=== PATIENT | female | born 1965 | race Caucasian/White ===

== ENCOUNTER 2018-11-13 12:34 | Emergency (ER) | payer MEDICARE, OTHER ==
[2018-11-13] MEDS ORDERED: NALOXONE 0.4 MG/ML 1 ML VIAL IV STA (12:51)
[2018-11-13] MEDS ORDERED: SODIUM CHLORIDE 0.9% 1,000 ML IV ONE (12:51)
[2018-11-13 13:05] LABS: Basophils # (A) 0.1 k/uL (0-0.2); Basophils % (A) 1 %; Eosinophils # (A) 0.3 k/uL (0-0.7); Eosinophils % (A) 3 %; HCT 40.9 % (34.0-46.0); HGB 13.4 gm/dL (11.4-16.0); Lymphocytes # (A) 1.6 k/uL (1.0-4.8); Lymphocytes % (A) 20 %; MCH 30.2 pg (25.0-35.0); MCHC 32.7 g/dL (31.0-37.0); MCV 92.2 fL (80.0-100.0); Mean Platelet Volume 6.3; Monocytes # (A) 0.4 k/uL (0-1.0); Monocytes % (A) 5 %; Neutrophils # (A) 5.6 k/uL (1.3-7.7); Neutrophils % (A) 69 %; Platelet Count 287 k/uL (150-450); RBC 4.44 m/uL (3.80-5.40); RDW 14.1 % (11.5-15.5); WBC 8.1 k/uL (3.8-10.6)
[2018-11-13 13:08] LABS: Glucose,Whole Blood 95 mg/dL (75-99)
[2018-11-13 13:13] LABS: INR 0.9 (<1.2); Partial Thromboplastin Time 22.7 sec (22.0-30.0); Prothrombin Time 9.9 sec (9.0-12.0)
[2018-11-13 13:21] LABS: Ammonia 21 umol/L (<30); Lactic Acid, Venous <0.5 mmol/L (0.7-2.0)
[2018-11-13 13:23] LABS: ALT 20 U/L (9-52); AST 16 U/L (14-36); Acetaminophen <10.0 ug/mL; African American GFR (CKD) 81 (>60 ml/min/1.73 sqM); Albumin 4.6 g/dL (3.5-5.0); Alcohol <10 mg/dL; Alkaline Phosphatase 42 U/L (38-126); Anion Gap 8 mmol/L; Blood Urea Nitrogen 18 mg/dL (7-17); Calcium 9.3 mg/dL (8.4-10.2); Carbon Dioxide 28 mmol/L (22-30); Chloride 106 mmol/L (98-107); Creatine Kinase 60 U/L (30-135); Glucose 99 mg/dL (74-99); Potassium 4.2 mmol/L (3.5-5.1); Salicylate <1.0 mg/dL; Sodium 142 mmol/L (137-145); Total Bilirubin 0.3 mg/dL (0.2-1.3); Total Protein 7.3 g/dL (6.3-8.2)
--- NOTE | 2018-11-13 13:25 | CT ---
EXAMINATION TYPE: CT brain wo con DATE OF EXAM: 11/13/2018 COMPARISON: None HISTORY: Disorientation, headache, COURTNEY. Hx HTN. CT DLP: 1064.[address] of the brain was performed. The ventricles, basal cisterns and sulci overlying the cerebral convexities demonstrate mild enlargem ent. There is no evidence for intracranial hemorrhage or sulcal effacement. There is decreased attenuation about the periventricular white matter and deep white matter of both c erebral hemispheres, compatible with chronic small vessel ischemia. Differential diagnosis does inclu de demyelination. No mass effects are seen.No midline shift. Osseous calvarium is intact. If symptoms persist consider MRI. IMPRESSION: 1. Age related atrophic and chronic small vessel ischemic change without acute intracranial process s een at this time.
--- NOTE | 2018-11-13 13:29 | XR ---
EXAMINATION TYPE: XR chest 2V DATE OF EXAM: 11/13/2018 COMPARISON: None INDICATION: Acute mental status change TECHNIQUE: Frontal and lateral views of the chest are obtained. FINDINGS: The heart size is normal. The pulmonary vasculature is normal. The lungs are clear. There is hyperinflation flattening the diaphragms compatible COPD. IMPRESSION: 1. No acute pulmonary process. 2. COPD
--- NOTE | 2018-11-13 14:02 | ED ---
Altered Mental Status HPI - General Chief Complaint: Altered Mental Status Stated Complaint: altered mental status Time Seen by Provider: 11/13/18 12:45 Source: patient, family Mode of arrival: wheelchair Limitations: altered mental status - History of Present Illness Initial Comments: The patient is a 53-year-old female who presents to the emergency department accompanied by her termite treater helper boyfriend. The patient and her were going to see a movie. reports that the patient was acting normally earlier today. They did get into the car and the patient complained of a left-sided headache. She then slumped over and became unresponsive. Boyfriend reports that she's been currently under the care of the [place] doctors in [facility] for a perforated bowel. She takes Klonopin for anxiety. She reports that she did take her medications just prior to her episode. Denies possibility of taking any additional medications. The patient is denying use of any illicit substances to include heroin, cocaine or alcohol. Boyfriend reports she has a h istory of opiate abuse in the past. There is no lateralizing deficits noted. No facial droop. The patient would respond properly to questioning and follow commands when arousable. The patient appeared overly sedated with a low pulse ox saturation. There were no signs of respiratory distress. HPI was difficult to obtain due to the patient's initial altered mental status. - Related Data Home Medications Medication Instructions Recorded Confirmed Dextroamphetamine/Amphetamine 15 mg PO QAM 11/13/18 11/13/18 [Adderall] OXcarbazepine [Trileptal] 300 mg PO BID 11/13/18 11/13/18 clonazePAM [KlonoPIN] 1.5 mg PO QAM PRN 11/13/18 11/13/18 traZODone HCL 150 mg PO HS 11/13/18 11/13/18 Allergies Allergy/AdvReac Type Severity Reaction Status Date / Time hydrocodone AdvReac Nausea & Verified 11/13/18 12:52 Vomiting Review of Systems ROS Statement: Those systems with pertinent positive or pertinent negative responses have been documented in the HPI. ROS Other: All systems not noted in ROS Statement are negative. Past Medical History Past Medical History: Hypertension Additional Past Medical History / Comment(s): stomach perforation History of Any Multi-Drug Resistant Organisms: None Reported Additional Past Surgical History / Comment(s): foot surgery Past Psychological History: Anxiety Smoking Status: Current every day smoker Past Alcohol Use History: None Reported Past Drug Use History: Marijuana General Exam Limitations: altered mental status General appearance: obtunded Head exam: Present: atraumatic, normocephalic Eye exam: Present: normal appearance, other (pupils are 2 mm, non-reactive bilaterally) ENT exam: Present: normal exam, mucous membranes moist Neck exam: Present: normal inspection. Absent: tenderness, meningismus Respiratory exam: Present: normal lung sounds bilaterally, other (shallowed respirations) Cardiovascular Exam: Present: regular rate, normal rhythm GI/Abdominal exam: Present: soft. Absent: distended, tenderness, guarding, rebound, rigid Extremities exam: Present: full ROM Back exam: Present: normal inspection. Absent: tenderness Neurological exam: Present: altered, CN II-XII intact Skin exam: Present: warm, dry, intact Course Vital Signs 11/13/18 11/13/18 11/13/18 12:40 12:54 14:17 Temperature 98.0 F Pulse Rate 88 64 Respiratory 18 10 L 18 Rate Blood Pressure 128/80 130/94 O2 Sat by Pulse 93 L 95 Oximetry 11/13/18 15:45 Temperature 98.4 F Pulse Rate 84 Respiratory 18 Rate Blood Pressure 124/84 O2 Sat by Pulse 95 Oximetry Medical Decision Making - Medical Decision Making Upon arrival the patient is placed into room 1. She is hooked up to continuous pulse ox and cardiac monitoring. Vitals are obtain and the patient is notably hypoxic with sats in the 70s. She is placed on 2 L nasal cannula. NIH stroke scaling is performed and the patient does not demonstrate any lateralizing symptoms. She will open her eyes and follow commands when aroused however this is difficult. Peripheral IV is established. The patient's pupils were pinpoint at 2 mm. Because of this I did provide the patient with 0.4 mg of IV Narcan. She then becomes alert and her hypoxia improves. She states that she felt well today and does not remember the episode. She denies taking any excess of her medications. She denies any opiate abuse. Denies any illicit drug use. I did recommend laboratory studies as well as a CT of the patient's brain and a chest x-ray. Upon return I did reevaluate the patient. She does remain alert in the examination room. The patient is observed for several hours and does not demonstrate any signs of sedation. I did discuss the results with the patient. I did inform her that she tested positive for opiates, benzos, cocaine and THC in her urine. The patient continues to deny use of opiates and cocaine. The patient does have abnormal thyroid studies at this time. She will be discharged home and needs to follow-up with her primary care physician at the [facility]. She is given copies of her laboratory studies. I did offer to call the patient's primary care physician to see if it should start her on any thyroid medications however the patient reports that she will do this on her own. I did instruct her that she should stay away from use of any illicit substances. If she has any new or worsening symptoms, she should return to the emergency room. The patient was discharged home in stable condition - Differential Diagnosis acute encephalopathy, polysubstance abuse, hypothyroid - Lab Data Result diagrams: 11/13/18 12:50 11/13/18 12:50 Lab Results 11/13/18 11/13/18 11/13/18 Range/Units 12:48 12:50 12:50 WBC 8.1 (3.8-10.6) k/uL RBC 4.44 (3.80-5.40) m/uL Hgb 13.4 (11.4-16.0) gm/dL Hct 40.9 (34.0-46.0) % MCV 92.2 (80.0-100.0) fL MCH 30.2 (25.0-35.0) pg MCHC 32.7 (31.0-37.0) g/dL RDW 14.1 (11.5-15.5) % Plt Count 287 (150-450) k/uL Neutrophils % 69 % Lymphocytes % 20 % Monocytes % 5 % Eosinophils % 3 % Basophils % 1 % Neutrophils # 5.6 (1.3-7.7) k/uL Lymphocytes # 1.6 (1.0-4.8) k/uL Monocytes # 0.4 (0-1.0) k/uL Eosinophils # 0.3 (0-0.7) k/uL Basophils # 0.1 (0-0.2) k/uL PT (9.0-12.0) sec INR (<1.2) APTT (22.0-30.0) sec Sodium (137-145) mmol/L Potassium (3.5-5.1) mmol/L Chloride (98-107) mmol/L Carbon Dioxide (22-30) mmol/L Anion Gap mmol/L BUN (7-17) mg/dL Creatinine (0.52-1.04) mg/dL Est GFR (CKD-EPI)AfAm (>60 ml/min/1.73 sqM) Est GFR (CKD-EPI)NonAf (>60 ml/min/1.73 sqM) Glucose (74-99) mg/dL POC Glucose (mg/dL) 95 (75-99) mg/dL POC Glu Project Safety Manager ID [email or web address] Plasma Lactic Acid Adi <0.5 L (0.7-2.0) mmol/L Calcium (8.4-10.2) mg/dL Total Bilirubin (0.2-1.3) mg/dL AST (14-36) U/L ALT (9-52) U/L Alkaline Phosphatase (38-126) U/L Ammonia 21 (<30) umol/L Creatine Kinase (30-135) U/L Total Protein (6.3-8.2) g/dL Albumin (3.5-5.0) g/dL TSH (0.465-4.680) mIU/L Free T4 (0.78-2.19) ng/dL Urine Color Urine Appearance (Clear) Urine pH (5.0-8.0) Ur Specific [place] (1.001-1.035) Urine Protein (Negative) Urine Glucose (UA) (Negative) Urine Ketones (Negative) Urine Blood (Negative) Urine Nitrite (Negative) Urine Bilirubin (Negative) Urine Urobilinogen (<2.0) mg/dL Ur Leukocyte Esterase (Negative) Urine RBC (0-5) /hpf Urine WBC (0-5) /hpf Ur Squamous Epith Cells (0-4) /hpf Urine Bacteria (None) /hpf Urine Mucus (None) /hpf Salicylates mg/dL Urine Opiates Screen (NotDetected) Ur Oxycodone Screen (NotDetected) Urine Methadone Screen (NotDetected) Ur Propoxyphene Screen (NotDetected) Acetaminophen ug/mL Ur Barbiturates Screen (NotDetected) U Tricyclic Antidepress (NotDetected) Ur Phencyclidine Scrn (NotDetected) Ur Amphetamines Screen (NotDetected) U Methamphetamines Scrn (NotDetected) U Benzodiazepines Scrn (NotDetected) Urine Cocaine Screen (NotDetected) U Marijuana (THC) Screen (NotDetected) Serum Alcohol mg/dL 11/13/18 11/13/18 11/13/18 Range/Units 12:50 12:50 14:25 WBC (3.8-10.6) k/uL RBC (3.80-5.40) m/uL Hgb (11.4-16.0) gm/dL Hct (34.0-46.0) % MCV (80.0-100.0) fL MCH (25.0-35.0) pg MCHC (31.0-37.0) g/dL RDW (11.5-15.5) % Plt Count (150-450) k/uL Neutrophils % % Lymphocytes % % Monocytes % % Eosinophils % % Basophils % % Neutrophils # (1.3-7.7) k/uL Lymphocytes # (1.0-4.8) k/uL Monocytes # (0-1.0) k/uL Eosinophils # (0-0.7) k/uL Basophils # (0-0.2) k/uL PT 9.9 (9.0-12.0) sec INR 0.9 (<1.2) APTT 22.7 (22.0-30.0) sec Sodium 142 (137-145) mmol/L Potassium 4.2 (3.5-5.1) mmol/L Chloride 106 (98-107) mmol/L Carbon Dioxide 28 (22-30) mmol/L Anion Gap 8 mmol/L BUN 18 H (7-17) mg/dL Creatinine 0.92 (0.52-1.04) mg/dL Est GFR (CKD-EPI)AfAm 81 (>60 ml/min/1.73 sqM) Est GFR (CKD-EPI)NonAf 71 (>60 ml/min/1.73 sqM) Glucose 99 (74-99) mg/dL POC Glucose (mg/dL) (75-99) mg/dL POC Glu Project Safety Manager ID Plasma Lactic Acid Adi (0.7-2.0) mmol/L Calcium 9.3 (8.4-10.2) mg/dL Total Bilirubin 0.3 (0.2-1.3) mg/dL AST 16 (14-36) U/L ALT 20 (9-52) U/L Alkaline Phosphatase 42 (38-126) U/L Ammonia (<30) umol/L Creatine Kinase 60 (30-135) U/L Total Protein 7.3 (6.3-8.2) g/dL Albumin 4.6 (3.5-5.0) g/dL TSH 8.470 H (0.465-4.680) mIU/L Free T4 0.57 L (0.78-2.19) ng/dL Urine Color Yellow Urine Appearance Clear (Clear) Urine pH 6.0 (5.0-8.0) Ur Specific [place] 1.013 (1.001-1.035) Urine Protein Negative (Negative) Urine Glucose (UA) Negative (Negative) Urine Ketones Negative (Negative) Urine Blood Negative (Negative) Urine Nitrite Negative (Negative) Urine Bilirubin Negative (Negative) Urine Urobilinogen <2.0 (<2.0) mg/dL Ur Leukocyte Esterase Small H (Negative) Urine RBC 2 (0-5) /hpf Urine WBC 7 H (0-5) /hpf Ur Squamous Epith Cells <1 (0-4) /hpf Urine Bacteria Rare H (None) /hpf Urine Mucus Rare H (None) /hpf Salicylates <1.0 mg/dL Urine Opiates Screen Detected H (NotDetected) Ur Oxycodone Screen Not Detected (NotDetected) Urine Methadone Screen Not Detected (NotDetected) Ur Propoxyphene Screen Not Detected (NotDetected) Acetaminophen <10.0 ug/mL Ur Barbiturates Screen Not Detected (NotDetected) U Tricyclic Antidepress Not Detected (NotDetected) Ur Phencyclidine Scrn Not Detected (NotDetected) Ur Amphetamines Screen Not Detected (NotDetected) U Methamphetamines Scrn Not Detected (NotDetected) U Benzodiazepines Scrn Detected H (NotDetected) Urine Cocaine Screen Detected H (NotDetected) U Marijuana (THC) Screen Detected H (NotDetected) Serum Alcohol <10 mg/dL - EKG Data EKG Comments: EKG demonstrates a normal sinus rhythm with a ventricular rate of 83. TX interval 140. QRS 80. QTC 441. There are no acute ST segment elevations or depressions concerning for ischemic changes. Disposition Clinical Impression: Altered mental status, Drug overdose, Polysubstance abuse Disposition: HOME SELF-CARE Instructions (If sedation given, give patient instructions): Altered Mental Status (ED), Opioid Safety (ED) Additional Instructions: Please follow-up with your primary care doctor for reevaluation of your thyroid studies. You may need to be placed on medications for low thyroid. Return to the emergency department for any new or worsening symptoms. We always recommend that you avoid any illicit substances. Is patient prescribed a controlled substance at d/c from ED?: No Referrals: Nonstaff,Physician [Primary Care Provider] - 1-2 days Time of Disposition: 15:31
[2018-11-13 14:19] VITALS: RESP 18
[2018-11-13 14:38] LABS: Appearance,Urine Clear (Clear); Bacteria,Urine Rare /hpf; Bilirubin,Urine Negative (Negative); Blood,Urine Negative (Negative); Color,Urine Yellow; Glucose,Urine (UA) Negative (Negative); Ketones,Urine Negative (Negative); Leukocyte Esterase,Urine Small (Negative); Mucus,Urine Rare /hpf; Nitrite,Urine Negative (Negative); Protein,Urine Negative (Negative); RBC,Urine 2 /hpf (0-5); Specific Gravity,Urine 1.013 (1.001-1.035); Squamous Epithelial Cell,Urine <1 /hpf (0-4); Urobilinogen,Urine <2.0 mg/dL (<2.0)
[2018-11-13 14:47] LABS: Cocaine Screen,Urine Detected (NotDetected); Opiate Screen,Urine Detected (NotDetected); Phencyclidine Screen,Urine Not Detected (NotDetected); Urn Cannabinoid Scrn Detected (NotDetected)
[2018-11-13 14:47] LABS: T4, Free (Free Thyroxine) 0.57 ng/dL (0.78-2.19)
[2018-11-13 14:48] LABS: Amphetamine Screen,Urine Not Detected (NotDetected); Barbiturate Screen,Urine Not Detected (NotDetected); Benzodiazepines Screen,Urine Detected (NotDetected); Methadone Screen, Urine Not Detected (NotDetected); Oxycodone Screen, Urine Not Detected (NotDetected); Tricyclic Antidepressant,Urine Not Detected (NotDetected)
[2018-11-13 15:46] VITALS: BP 124/84; PULSE 84; TEMP 98.4
== END 2018-11-13 15:45 | disposition home or self-care (01) ==
LOC: EC 12:34
DX: T50.901A Poisoning by unspecified drugs, medicaments and biological substances, accidental (unintentional), initial encounter (principal); R41.82 Altered mental status, unspecified; F19.10 Other psychoactive substance abuse, uncomplicated; F11.10 Opioid abuse, uncomplicated; F12.10 Cannabis abuse, uncomplicated; R09.02 Hypoxemia; R51 Headache; F41.9 Anxiety disorder, unspecified; F17.200 Nicotine dependence, unspecified, uncomplicated; Z79.899 Other long term (current) drug therapy; Z88.5 Allergy status to narcotic agent
CPT/HCPCS: 99285 ×2; 96374 ×2; 96361 ×2; 36415; 93005; 84439; 80053; 84443; 82140; 82550; 83605; 85025; 85610; 85730; 81001; 80306; 83520; 71046; 70450; G0480 ×2; J2310; 80320; 80329